=== PATIENT | male | born 1960 | race Caucasian/White ===

== ENCOUNTER 2020-10-08 07:43 | Emergency (ER) | payer OTHER ==
[~2020-10-08] VITALS: Ht 180.3 cm; Wt 80.7 kg
[2020-10-08] MEDS ORDERED: COREG3.125 MG PO (08:17)
[2020-10-08] MEDS ORDERED: LIPITOR80 MG PO (08:17)
[2020-10-08] MEDS ORDERED: EFFIENT10 MG PO (08:18)
[2020-10-08] MEDS ORDERED: ASA81BEC PO (08:18)
[2020-10-08] MEDS ORDERED: AUGMENTIN 875-1 EACH PO (10:06)
[2020-10-08] MEDS ORDERED: HYDROCODON-ACE1 EAC7 PO (10:06)
[2020-10-08 10:40] VITALS: BP 117/72
== END 2020-10-08 10:40 | disposition home or self-care (01) ==
LOC: M.ERS 07:43
DX: S61.511A Laceration without foreign body of right wrist, initial encounter (principal); S61.411A Laceration without foreign body of right hand, initial encounter; Z79.899 Other long term (current) drug therapy; W54.0XXA Bitten by dog, initial encounter; Y93.89 Activity, other specified; Y92.89 Other specified places as the place of occurrence of the external cause; Y99.8 Other external cause status